=== PATIENT | female | born 1970 | race Caucasian/White ===

== ENCOUNTER 2016-07-22 07:50 | Emergency (ER) | payer SELFPAY ==
[~2016-07-22] VITALS: Ht 162.6 cm; Wt 68.0 kg
[2016-07-22 07:53] VITALS: BP 150/87; PULSE 82; RESP 16; TEMP 97.7; O2SAT 99
[2016-07-22] MEDS ORDERED: IBUP800T23 PO (08:10)
--- NOTE | 2016-07-22 08:10 | PD ---
HPI Chief Complaint: Pain: Acute or Chronic Time Seen by Provider: 08:08 Travel History International Travel<30 days: No Contact w/Intl Traveler<30days: No Traveled to known affect area: No History of Present Illness HPI 45-year-old female presents emergency Department with complaint of right knee pain. She had an injury about a year ago and was told that her ligaments were week. Approximately one week ago she felt her knee "give out." She denies new or recent injury. She's been wearing a brace and using a cane for support. She has been ambulatory on the affected extremity. She said when she woke up this morning she stood up and felt like it went out again. Denies paresthesias , loss of sensation, decreased range of motion, decreased strength to the affected extremity. Denies fever, vomiting. Has not taken any medications to alleviate her symptoms. No known allergies. Does not have an established primary care provider. Has no other medical complaints. No other modifying factors or associated signs and symptoms. PFSH Past Medical History ?: Not LMP: 06/28/16 Social History Tobacco Use: No Allergies-Medications (Allergen,Severity, Reaction): Coded Allergies: No Known Allergies (Unverified , 07/22/16) Reported Meds & Prescriptions Reported Meds & Active Scripts Active Ibuprofen 800 Mg Tab 800 Mg PO Q6HR PRN Review of Systems Except as stated in HPI: all other systems reviewed are Neg Physical Exam Narrative GENERAL: Well-nourished, well-developed female patient, in no acute distress SKIN: Warm and dry. HEAD: Atraumatic. Normocephalic. EYES: Pupils equal and round. No scleral icterus. No injection or drainage. ENT: Mucosa pink and moist. Airway patent. NECK: Trachea midline. CARDIOVASCULAR: Regular rate. RESPIRATORY: No accessory muscle use. GASTROINTESTINAL: Flat. MUSCULOSKELETAL: Right knee is nonedematous, nonerythematous and without ecchymosis; with full range of motion of flexion to 90; point tenderness to the lateral aspect; joint stable with negative drawer test. Right lower extremity is supple and non-tense with 2+ pedal pulses and sensory intact and without erythema or edema. No obvious deformities. No cyanosis. No edema. NEUROLOGICAL: Awake and alert. Oriented 3. No obvious cranial nerve deficits. Motor grossly within normal limits. Normal speech. PSYCHIATRIC: Appropriate mood and affect; insight and judgment normal. Data Data Last Documented VS Vital Signs Date Time Temp Pulse Resp B/P Pulse Ox O2 Delivery O2 Flow Rate FiO2 07/22/16 07:53 97.7 82 16 150/87 99 Room Air Orders Crutches (07/22/16 08:10) Mandatory Outpatient Referral (07/22/16 08:10) [facility] Medical Decision Making Medical Screen Exam Complete: Yes Emergency Medical Condition: Yes Medical Record Reviewed: Yes Differential Diagnosis Knee strain, ligament tear, less likely fracture dislocation Narrative Course 45-year-old female with right knee strain. I do not suspect fracture or dislocation and feel imaging is not necessary at this time. Patient provided with crutches for support. Mandatory referral entered for outpatient follow- up. Ibuprofen prescribed for home. Instructed patient to follow up with orthopedic. Patient verbalizes understanding and agreement with treatment plan. Patient is medically cleared and stable for discharge. Discussed reasons to return to the emergency department. Instructed patient to follow up with primary care provider. Patient agrees with treatment plan. The patients vital signs are stable and the patient is stable for outpatient follow-up and treatment. Patient discharged home, stable and in no acute distress. Diagnosis Primary Impression: Strain of right knee Qualified Code: S86.911A - Strain of right knee, initial encounter Referrals: Primary Care Physician Patient Instructions: Crutch Instructions (ED), General Instructions, Knee Sprain (ED) Departure Forms: Tests/Procedures, Work Release Enter return to work date: July 29, 2016 Additional Instructions: Tylenol or ibuprofen as needed and as directed to reduce pain and inflammation Rest, ice, compress, and elevate extremity to decrease pain and inflammation Knee Brace for support Crutches for support Avoid aggravating activity; increase activity as tolerated Follow-up with primary care provider Follow-up with orthopedic Return to the emergency department immediately with worsening symptoms Med/Other Pt SpecificInfo: Prescription(s) given Scripts Ibuprofen 800 Mg Cro888 Mg PO Q6HR PRN (PAIN) #30 TAB Ref 0 Prov:Liyah Darling 07/22/16 Disposition: 01 DISCHARGE HOME Condition: Stable Liyah Darling July 22, 2016 08:10
== END 2016-07-22 08:27 | disposition home or self-care (01) ==
LOC: NEPK 07:50
DX: S83.91XA Sprain of unspecified site of right knee, initial encounter (principal); X58.XXXA Exposure to other specified factors, initial encounter
CPT/HCPCS: 99283; E0113